=== PATIENT | male | born 1990 ===

== ENCOUNTER 2017-05-13 18:11 | Emergency (ER) | payer BC ==
[~2017-05-13] VITALS: Ht 180.3 cm; Wt 96.3 kg
[2017-05-13 18:29] VITALS: TEMP 36.3; Ht 180.3 cm; Wt 96.3 kg
[2017-05-13] MEDS ORDERED: OMEG10007 PO (19:36)
[2017-05-13] MEDS ORDERED: MULT-513 PO (19:36)
[2017-05-13] MEDS ORDERED: MISCCAP80 PO (19:36)
[2017-05-13] MEDS ORDERED: KETOROLAC TROMETHAMINE 30 MG/ML VIAL IV STA (20:09)
[2017-05-13] MEDS ORDERED: SODIUM CHLORIDE 0.9% 1000ML 1,000 ML IV STA (20:09)
[2017-05-13] MEDS ORDERED: ONDANSETRON 8 MG/54 ML D5W IV STA (20:09)
[2017-05-13] MEDS ORDERED: DiphenhydrAMINE HCL 50 MG/ML VIAL IV STA (20:09)
--- NOTE | 2017-05-13 21:13 | DIAGNOSTIC IMAGING REPORT ---
CT SCAN OF THE BRAIN WITHOUT IV CONTRAST CLINICAL HISTORY: Headache. COMPARISON STUDY: No priors. TECHNIQUE: Unenhanced axial CT scan of the brain is performed from the vertex to the skull base. Automated dose control exposure was utilized. A dose lowering technique was utilized adhering to the principles of ALARA. CT DOSE: 614.27 mGy.cm FINDINGS: Brain parenchyma: The brain parenchyma is normal in appearance. There is no hemorrhage, mass effect, or evidence of acute territorial ischemia by CT criteria. Ford-white matter is preserved. No extra-axial fluid collection is seen. Ventricles, sulci, cisterns: Normal in configuration. Intracranial vasculature: The visualized intracranial vasculature at the skull base is normal in appearance. Calvarium: Unremarkable. Sinuses and mastoids: The visualized paranasal sinuses are clear. The mastoid air cells are well pneumatized. Orbits: The bony orbits are grossly intact. IMPRESSION: No acute intracranial abnormality. Electronically signed by: Jim Walker M.D. 05/13/2017 9:12 PM Dictated Date/Time: 05/13/2017 9:11 PM
[2017-05-13] MEDS ORDERED: BUTALBITAL/ACETAMIN/CAFFEINE TAB PO STA (21:56)
--- NOTE | 2017-05-13 22:17 | EMERGENCY ROOM VISIT NOTE ---
History Report prepared by Scribe: Saeed Holder Under the Supervision of: Dr. Eulalio Suero D.O. First contact with patient: 19:33 Chief Complaint: HEADACHE Stated Complaint: HEADACHE - LIGHT SENSITIVITY History of Present Illness The patient is a 27 year old male who presents to the Emergency Room with complaints of a persistent frontal headache beginning 4.5 hours ago. He also complains of photophobia, mild lightheadedness, sweating, and vomiting. He states that his symptoms began after walking a few flights of stairs while at work. The patient states that his symptoms began with the photophobia. States he then developed a dull headache which has slowly persisted and steadily gotten worse. He states that he has felt nauseous and vomited with headaches in the past, but states that his current symptoms are more severe. He estimates that he has about 1 headache per month or so. The patient denies any visual changes, diarrhea, cough, fevers, or chills. He denies any recent travel, or injury or trauma. He denies eating anything abnormal. Denies this is the worst headache of his life. Family hx of headaches also. Source of History: patient Onset: 4.5 hours ago Position: head (frontal) Timing: other (persistent) Associated Symptoms: No fevers, No chills, No cough, No diarrhea Note: The patient also complains of photophobia, mild lightheadedness, and sweating. He denies any visual changes. Review of Systems See HPI for pertinent positives & negatives. A total of 10 systems reviewed and were otherwise negative. Past Medical & Surgical Medical Problems: (1) No Known Active Medical Problems Family History No pertinent family history stated. Social History Smoking Status: Never Smoker Occupation Status: employed Current/Historical Medications Scheduled Fish Oil ([place]-3), 1 CAP PO DAILY Multivitamins/Minerals (Mvi With Minerals), 1 TAB PO DAILY Probiotic Product (Probiotic), 1 CAP PO DAILY Allergies Coded Allergies: No Known Allergies (Unverified , 05/13/17) Physical Exam Vital Signs Date Time Temp Pulse Resp B/P (MAP) Pulse Ox O2 Delivery O2 Flow Rate FiO2 05/13/17 22:32 59 18 140/66 98 05/13/17 22:06 59 18 140/66 98 Room Air 05/13/17 20:44 62 18 135/79 100 Room Air 05/13/17 18:29 36.3 53 20 129/75 100 Room Air Physical Exam GENERAL: alert, well appearing, well nourished, no distress, non-toxic, sitting on stretcher with the lights dimmed and sunglasses on. EYE EXAM: normal conjunctiva, PERRL and EOM's grossly intact. OROPHARYNX: no exudate, no erythema, lips, buccal mucosa, and tongue normal and mucous membranes are moist NECK: supple, no nuchal rigidity, no adenopathy, non-tender LUNGS: Clear to auscultation. Normal chest wall mechanics, no w/r/r HEART: no murmurs, S1 normal and S2 normal ABDOMEN: abdomen soft, non-tender, normo-active bowel sounds, no masses, no rebound or guarding. BACK: Back is symmetrical on inspection and there is no deformity, no midline tenderness, no CVA tenderness. SKIN: no rashes and no bruising UPPER EXTREMITIES: upper extremities are grossly normal. LOWER EXTREMITIES: No pitting edema. NEURO EXAM: Normal sensorium, cranial nerves II-XII intact, normal speech, no facial droop, no weakness of arms, no weakness of legs. No drift. Finger to nose intact. Gross sensation intact. Medical Decision & Procedures ER Provider Diagnostic Interpretation: CT:Per my review, radiologist interpretation. CT SCAN OF THE BRAIN WITHOUT IV CONTRAST FINDINGS: Brain parenchyma: The brain parenchyma is normal in appearance. There is no hemorrhage, mass effect, or evidence of acute territorial ischemia by CT criteria. Ford-white matter is preserved. No extra-axial fluid collection is seen. Ventricles, sulci, cisterns: Normal in configuration. Intracranial vasculature: The visualized intracranial vasculature at the skull base is normal in appearance. Calvarium: Unremarkable. Sinuses and mastoids: The visualized paranasal sinuses are clear. The mastoid air cells are well pneumatized. Orbits: The bony orbits are grossly intact. IMPRESSION: No acute intracranial abnormality. Electronically signed by: Jim Walker M.D. Medications Administered Medications (Trade) Dose Ordered Sig/Gold Route Start Time Stop Time Status Last Admin Dose Admin Sodium Chloride 1,000 ml @ 999 mls/hr Q1H1M STAT IV 05/13/17 20:09 05/13/17 21:09 DC 05/13/17 20:39 999 MLS/HR Ondansetron HCl (Zofran 8mg Iv) 8 mg NOW STAT IV 05/13/17 20:09 05/13/17 20:10 DC 05/13/17 20:39 8 MG Diphenhydramine HCl (Benadryl Inj) 25 mg NOW STAT IV 05/13/17 20:09 05/13/17 20:11 DC 05/13/17 20:39 25 MG Ketorolac Tromethamine (Toradol Inj) 30 mg NOW STAT IV 05/13/17 20:09 05/13/17 20:11 DC 05/13/17 20:39 30 MG Acetaminophen/ Butalbital/ Caffeine (Fioricet Tab) 1 tab NOW STAT PO 05/13/17 21:56 05/13/17 21:57 DC 05/13/17 22:05 1 TAB ED Course 2000: The patient was evaluated in room B10. A complete history and physical exam was performed. 2008: Ordered Toradol Inj 30 mg IV, Benadryl Inj 25 mg IV, Zofran 8 mg IV, Sodium Chloride 1000 ml @ 999 mls/hr IV. 2152: I reassessed the patient. His headache has improved but is still present. 2155: Ordered Fioricet Tab 1 tab PO. 2199: Upon reevaluation, the patient is feeling better. I discussed the findings and the treatment plan with the patient. He verbalizes agreement and understanding. He was discharged home. Medical Decision Differential Diagnosis includes but is not limited to headache, tension headache , cluster headache, migraine, subarachnoid hemorrhage, meningitis, mass, central venous thrombus, concussion, trauma and epidural/subdural hemorrhage. Pt presentation most consistent with that of a migraine. Doubt SAH, doubt meningitis. Discussed ddx with pt and discussed LP, but did not feel warranted at this time and pt agreeable. CT reassuring, pt had never had neuroimaging prior. Sx improved with meds and IVF here. Doubt CVA, CVS thrombus, dissection. Pt ambulated with a steady gait, tolerated po at bedside without recurrent vomiting, normal nonfocal neuro exam. Discussed with pt f/u with pcp , sx to watch/return for, he verbalized understanding and was agreeable with plan. Blood Pressure Screening Patient's blood pressure: Elevated blood pressure Blood pressure disposition: Elevated BP felt to be situational Impression Primary Impression: Headache Additional Impression: Migraine Scribe Attestation The scribe's documentation has been prepared under my direction and personally reviewed by me in its entirety. I confirm that the note above accurately reflects all work, treatment, procedures, and medical decision making performed by me. Departure Information Dispostion Home / Self-Care Referrals No Doctor, Assigned (PCP) Patient Instructions My [facility] Additional Instructions Please rest, please make sure you're drinking plenty of fluids and staying well- hydrated. You may eat as tolerated. Please avoid any strenuous activity or heavy lifting until you're feeling better. Please follow up with your family doctor as a precaution given the atypical nature of today's events. Please avoid alcohol use until you're feeling better. If you have any recurrent or worsening headache, develop dizziness, vision changes, fevers or chills, numbness or tingling, or you have any other new and concerning symptoms, please return the emergency room. Problem Qualifiers Primary Impression: Headache Headache type: unspecified Headache chronicity pattern: acute headache Intractability: not intractable Qualified Codes: R51 - Headache Additional Impression: Migraine Migraine type: unspecified Status migrainosus presence: without status migrainosus Intractability: not intractable Qualified Codes: G43.909 - Migraine, unspecified, not intractable, without status migrainosus
[2017-05-13 22:32] VITALS: BP 140/66; PULSE 59; O2SAT 98
== END 2017-05-13 22:33 | disposition home or self-care (01) ==
LOC: C.EDB 18:13
DX: G43.909 Migraine, unspecified, not intractable, without status migrainosus (principal)